=== PATIENT | male | born 1945 | race Asian ===

== ENCOUNTER → 2019-01-27 | Day surgery (SDC) | payer OTHER, MEDICARE ==
[~2019-01-27] VITALS: Ht 30.5 cm; Wt 0.5 kg
== END ==
LOC: OR 01-20 04:30
PROC: 3E0R33Z Introduction of Anti-inflammatory into Spinal Canal, Percutaneous Approach (ICD-10-PCS; principal; 2019-01-27)
PROC: B01BYZZ Fluoroscopy of Spinal Cord using Other Contrast (ICD-10-PCS; 2019-01-27)
DX: M51.16 Intervertebral disc disorders with radiculopathy, lumbar region (principal)
CPT/HCPCS: J1020

== ENCOUNTER 2019-03-24 08:12 | Day surgery (SDC) | payer OTHER, MEDICARE | END 2019-03-24 10:05 | disposition home or self-care (01) | LOC: OR 08:12 | PROC: 3E0R33Z Introduction of Anti-inflammatory into Spinal Canal, Percutaneous Approach (ICD-10-PCS; principal; 2019-03-24) | PROC: B01BYZZ Fluoroscopy of Spinal Cord using Other Contrast (ICD-10-PCS; 2019-03-24) | DX: M51.16 Intervertebral disc disorders with radiculopathy, lumbar region (principal) | CPT/HCPCS: J1020 ==